=== PATIENT | male | born 1980 | race African-American/Black ===

== ENCOUNTER 2017-02-23 16:04 | Emergency (ER) | payer MEDICAID ==
[~2017-02-23] VITALS: Ht 162.6 cm; Wt 59.0 kg
[~2017-02-23 16:04] MED LIST: [UNRECOGNIZED DRUG - REMARK] PO; [UNRECOGNIZED DRUG - REMARK] PO
--- NOTE | 2017-02-23 17:19 | NUR ---
JOSELIN arrived to speak with pt.
--- NOTE | 2017-02-23 17:35 | NUR ---
Pt resting gurney with no acute distress noted, xray results pending.
--- NOTE | 2017-02-23 19:06 | NUR ---
Patient discharged to home in stable conditon. Written and verbal after care instructions given. Patient verbalizes understanding of instructions. Stressed follow up or return to ER for worsening s/s.
== END 2017-02-23 19:08 | disposition home or self-care (01) ==
LOC: ER 16:04
DX: S13.4XXA Sprain of ligaments of cervical spine, initial encounter (principal); S49.92XA Unspecified injury of left shoulder and upper arm, initial encounter; Z59.0 Homelessness; V79.9XXA Bus occupant (driver) (passenger) injured in unspecified traffic accident, initial encounter; Y93.89 Activity, other specified; Y92.413 State road as the place of occurrence of the external cause; Y99.9 Unspecified external cause status
CPT/HCPCS: 72040; 73030; 99284; A4663

== ENCOUNTER 2017-02-25 06:41 | Emergency (ER) | payer MEDICAID ==
[~2017-02-25] VITALS: Ht 162.6 cm; Wt 59.0 kg
--- NOTE | 2017-02-25 07:10 | NUR ---
Pt.was seen by ,pt.refuse from any treatment & lab draw or x-ray. Was d/c by .
[2017-02-25] MEDS ORDERED: IBUPROFEN 600 MG TABLET PO ONE (07:30)
[2017-02-25 07:35] VITALS: BP 128/64
[2017-02-25] MEDS ORDERED: IBUPROFEN 600 MG TABLET ONE (07:41)
== END 2017-02-25 07:37 | disposition home or self-care (01) ==
LOC: ER 06:41
DX: F32.9 Major depressive disorder, single episode, unspecified (principal); F41.9 Anxiety disorder, unspecified; Z59.0 Homelessness
CPT/HCPCS: 99284; A4663

== ENCOUNTER 2017-03-27 18:54 | Emergency (ER) | payer MEDICAID ==
[~2017-03-27] VITALS: Ht 162.6 cm; Wt 59.0 kg
--- NOTE | 2017-03-27 19:20 | NUR ---
Patient walked into ER c/o SI. Patient states he wants to cut his arm/wrist. Patient's clothing and property removed from the room, all dangerous items removed from the room, all cabinets are locked in the room, Security at bedside for 1:1 observation, To room 3A. [facility]ITAL[facility] performed MSE.
[2017-03-27 19:54] LABS: EOSINOPHILS # (AUTO) 0.1 K/uL (0.0-0.7); EOSINOPHILS % (AUTO) 2.8 % (0.0-7.0); HEMATOCRIT 40.8 % (40-50); HEMOGLOBIN 13.1 G/DL (14.0-18.0); LYMPHOCYTES # (AUTO) 1.7 K/UL (0.8-4.8); LYMPHOCYTES % (AUTO) 43.2 % (20.5-51.5); MEAN CORPUSCULAR HEMOGLOBIN 28.3 UUG (27.0-31.0); MEAN CORPUSCULAR HGB CONC 32 g/dL (32.0-37.0); MEAN CORPUSCULAR VOLUME 87.8 FL (82.0-92.0); MONOCYTES # (AUTO) 0.5 K/UL (0.1-1.30); MONOCYTES % (AUTO) 14.8 % (0.0-11.0); NEUTROPHILS # (AUTO) 1.4 K/UL (1.8-8.9); NEUTROPHILS % (AUTO) 38.2 % (38.5-71.5); PLATELET COUNT (AUTO) 301 K/UL (150-450); RED BLOOD CELL COUNT(AUTO) 4.65 MIL/UL (4.7-6.1); WHITE BLOOD COUNT (AUTO) 3.7 K/UL (4.0-11.2)
[2017-03-27 19:55] LABS: CARBON DIOXIDE 26 mmol/L (21-32); CHLORIDE 103 mmol/L (98-107); CREATININE 1.2 mg/dL (0.6-1.3); GLUCOSE 109 mg/dL (74-106); POTASSIUM 3.5 mmol/L (3.5-5.1); UREA NITROGEN, BLOOD 15 mg/dL (7-18)
[2017-03-27 20:04] LABS: ETHANOL < 3 MG/DL (0-0)
[2017-03-27 20:09] LABS: ALANINE AMINOTRANSFERASE 20 U/L (16-63); ALKALINE PHOSPHATASE 75 U/L (50-136); ASPARTATE AMINOTRANSFERASE 18 U/L (15-37); BILIRUBIN,DIRECT 0.1 mg/dL (0.0-0.2); BILIRUBIN,TOTAL 0.4 mg/dL (0.2-1.0); TOTAL PROTEIN, SERUM 8.1 g/dL (6.4-8.2)
[2017-03-27 20:11] LABS: ACETAMINOPHEN < 2.0 ug/mL (10-30)
--- NOTE | 2017-03-27 20:12 | NUR ---
Call placed to [facility] for PET evaluation. ETA 30 min
[2017-03-27] MEDS ORDERED: PHENYTOIN SODIUM IV 1,000 MG in IV NORMAL SALINE 100 ML IV ONE (20:30)
[2017-03-27] MEDS ORDERED: PHENYTOIN SODIUM 250 MG/5 ML VIAL IV ONE (20:49)
--- NOTE | 2017-03-27 20:53 | NUR ---
Patient refuses medication ordered by VITALIY. Patient states he has a fear of needles and yelled at staff "I'm not going to have a seizure!" VITALIY notified.
--- NOTE | 2017-03-27 21:30 | NUR ---
Patient laying in bed with eyes closed and blanket covering head intermittently. PET evaluation was completed. Patient is refusing to speak to staff and pretending to be sleeping despite observing patient moving his head and eyes around when he thinks people are not looking. ARETHAD notified.
--- NOTE | 2017-03-27 22:10 | NUR ---
Patient given written and verbal discharge instructions. Patient verbalizes understanding of instructions. Patient is ambulatory with steady gait. Refuses offer of halfway placement. Patient given list of available shelters in surrounding area.
== END 2017-03-27 22:11 | disposition home or self-care (01) ==
LOC: ER 18:54
DX: R45.851 Suicidal ideations (principal); D72.819 Decreased white blood cell count, unspecified; D64.9 Anemia, unspecified; F25.9 Schizoaffective disorder, unspecified
CPT/HCPCS: 36415; 85025; A4663; G0480; G0480-TC; J1165; J3490

== ENCOUNTER 2019-10-08 18:39 | Emergency (ER) | payer MEDICAID ==
[~2019-10-08] VITALS: Ht 162.6 cm; Wt 65.3 kg
--- NOTE | 2019-10-08 19:10 | NUR ---
Assumed care of patient. No acute distress noted. Direct observation ongoing. VSS
[2019-10-08 19:15] LABS: BASOPHILS # (AUTO) 0.1 K/uL (0.0-8.0); BASOPHILS % (AUTO) 1.1 % (0.0-2.0); EOSINOPHILS # (AUTO) 0.1 K/uL (0.0-0.7); EOSINOPHILS % (AUTO) 1.2 % (0.0-7.0); HEMATOCRIT 33.9 % (36.7-47.1); HEMOGLOBIN 11.5 g/dL (12.5-16.3); LYMPHOCYTES # (AUTO) 1.9 K/uL (20.0-40.0); LYMPHOCYTES % (AUTO) 30.2 % (20.5-51.5); MEAN CORPUSCULAR HEMOGLOBIN 28.8 uug (23.8-33.4); MEAN CORPUSCULAR HGB CONC 34 g/dL (32.5-36.3); MEAN CORPUSCULAR VOLUME 84.5 fL (73.0-96.2); MONOCYTES # (AUTO) 0.9 K/uL (2.0-10.0); MONOCYTES % (AUTO) 13.4 % (0.0-11.0); NEUTROPHILS # (AUTO) 3.5 K/uL (1.8-8.9); NEUTROPHILS % (AUTO) 54.1 % (38.5-71.5); PLATELET COUNT (AUTO) 293 K/uL (152-348); RED BLOOD CELL COUNT(AUTO) 4.01 MIL/uL (4.06-5.63); WHITE BLOOD COUNT (AUTO) 6.4 K/uL (3.6-10.2)
--- NOTE | 2019-10-08 19:19 | NUR ---
Spoke to Yazmin BERRY from Crisis team. She will come evaluate the patient once she is finished with her current case at [facility].
[2019-10-08 19:21] LABS: CARBON DIOXIDE 28 mmol/L (21-32); CHLORIDE 98 mmol/L (98-107); CREATININE 1.5 mg/dL (0.6-1.3); GLUCOSE 98 mg/dL (74-106); POTASSIUM 3.6 mmol/L (3.5-5.1); UREA NITROGEN, BLOOD 23 mg/dL (7-18)
[2019-10-08 19:30] LABS: ETHANOL < 3 MG/DL (0-0)
[2019-10-08 19:35] LABS: THYROID STIMULATING HORMONE 2.499 mIU/mL (0.358-3.740)
[2019-10-08 19:36] LABS: ACETAMINOPHEN < 2.0 ug/mL (10-30); ALANINE AMINOTRANSFERASE 16 U/L (16-63); ALKALINE PHOSPHATASE 71 U/L (50-136); ASPARTATE AMINOTRANSFERASE 32 U/L (15-37); BILIRUBIN,DIRECT 0.2 mg/dL (0.0-0.2); BILIRUBIN,TOTAL 0.5 mg/dL (0.2-1.0); CREATINE KINASE, TOTAL 1188 U/L (39-308); TOTAL PROTEIN, SERUM 9.2 g/dL (6.4-8.2)
--- NOTE | 2019-10-08 20:00 | NUR ---
[employer] at bedside interviewing patient.
--- NOTE | 2019-10-08 20:13 | NUR ---
Patient provided with sample cup for UDS.
[2019-10-08 20:42] LABS: *AMPHETAMINE, URINE POSITIVE (NEGATIVE); *BARBITURATE, URINE NEGATIVE (NEGATIVE); *CANNABINOID, URINE POSITIVE (NEGATIVE); *COCCAINE, URINE NEGATIVE (NEGATIVE); *OPIATE, URINE NEGATIVE (NEGATIVE); *PHENCYCLIDINE SCREEN,URINE POSITIVE (NEGATIVE)
--- NOTE | 2019-10-08 21:12 | NUR ---
Pinky at bedside for patient evaluation.
--- NOTE | 2019-10-08 21:30 | NUR ---
Per Yazmin RN, patient is free to leave if he decides to.
--- NOTE | 2019-10-08 23:11 | NUR ---
Patient provided with Verbal ACI. When speaking with ER MD, patient states he was simpy seeking food and longterm. He refused to complete the homeless d/c form, refused resources.
[2019-10-08 23:14] VITALS: BP 123/78
--- NOTE | 2019-10-08 23:14 | NUR ---
Patient denies SI/SA upon my evaluation.
== END 2019-10-08 23:15 | disposition home or self-care (01) ==
LOC: ER 18:43
DX: R45.851 Suicidal ideations (principal); Z76.5 Malingerer [conscious simulation]; F15.10 Other stimulant abuse, uncomplicated; F16.10 Hallucinogen abuse, uncomplicated; Z59.0 Homelessness; Z91.5 Personal history of self-harm; E87.1 Hypo-osmolality and hyponatremia; M62.82 Rhabdomyolysis; N28.9 Disorder of kidney and ureter, unspecified; F17.210 Nicotine dependence, cigarettes, uncomplicated
CPT/HCPCS: 36415; 80048; 80076; 80307 ×2; 80329; 82550; 84443; 85025; 93005; 99285; G0480; A4663

== ENCOUNTER 2020-04-14 20:01 | Emergency (ER) | payer MEDICAID ==
[~2020-04-14] VITALS: Ht 170.2 cm; Wt 67.1 kg
[~2020-04-14 20:01] MED LIST changes: +DEPAKOTE; +QUET25TA3; -[UNRECOGNIZED DRUG - REMARK] PO; -[UNRECOGNIZED DRUG - REMARK] PO
--- NOTE | 2020-04-14 20:20 | NUR ---
Patient BIB [id number], patient is homeless and verbalizes SI with a plan. Patient is A/Ox4. Speech is clear, speaks in complete sentences. Respiratory even and unlabored, no cough no sob. No cardiovascular distress noted, denies any cp, palpitations. Denies any n/v/d, or any gu distress. Endorses abusing marijuana and meth. Patient states he wants to overdose on his psych meds and methamphetamines. Safety precautions implemented. Personal items removed and placed in nursing station. Room reassessed and items removed.
--- NOTE | 2020-04-14 20:30 | NUR ---
[employer] placed patient on a 5150 for DTS.
[2020-04-14 21:15] LABS: BASOPHILS # (AUTO) 0.1 K/uL (0.0-8.0); BASOPHILS % (AUTO) 0.9 % (0.0-2.0); EOSINOPHILS % (AUTO) 0.7 % (0.0-7.0); HEMATOCRIT 36.3 % (36.7-47.1); HEMOGLOBIN 12.4 g/dL (12.5-16.3); LYMPHOCYTES # (AUTO) 1.7 K/uL (20.0-40.0); LYMPHOCYTES % (AUTO) 25.7 % (20.5-51.5); MEAN CORPUSCULAR HEMOGLOBIN 29.2 uug (23.8-33.4); MEAN CORPUSCULAR HGB CONC 34 g/dL (32.5-36.3); MEAN CORPUSCULAR VOLUME 85.4 fL (73.0-96.2); MONOCYTES # (AUTO) 0.7 K/uL (2.0-10.0); MONOCYTES % (AUTO) 10.1 % (0.0-11.0); NEUTROPHILS # (AUTO) 4.1 K/uL (1.8-8.9); NEUTROPHILS % (AUTO) 62.6 % (38.5-71.5); PLATELET COUNT (AUTO) 318 K/uL (152-348); RED BLOOD CELL COUNT(AUTO) 4.24 MIL/uL (4.06-5.63); WHITE BLOOD COUNT (AUTO) 6.6 K/uL (3.6-10.2)
[2020-04-14 21:18] LABS: CARBON DIOXIDE 26 mmol/L (21-32); CHLORIDE 103 mmol/L (98-107); CREATININE 1.4 mg/dL (0.6-1.3); GLUCOSE 87 mg/dL (74-106); POTASSIUM 3.9 mmol/L (3.5-5.1); UREA NITROGEN, BLOOD 19 mg/dL (7-18)
[2020-04-14 21:20] LABS: ETHANOL < 3 MG/DL (0-0)
[2020-04-14 21:22] LABS: ACETAMINOPHEN < 2.0 ug/mL (10-30)
[2020-04-14 22:42] LABS: *BILIRUBIN,URIN NEGATIVE (NEGATIVE); *CLARITY,URINE CLEAR (CLEAR); *COLOR,URINE YELLOW (YELLOW); *KETONES,URINE TRACE (NEGATIVE); *UROBILINOGEN,URINE 0.2 E.U./dl (NORMAL); LEUKOCYTE ESTERASE ,URINE NEGATIVE (NEGATIVE); NITRITE, URINE NEGATIVE (NEGATIVE); PH,URINE 5.5 (5.0-8.0); UGLUCOSE NEGATIVE (NEGATIVE)
[2020-04-14 22:43] LABS: *BLOOD, URINE TRACE LYSED (NEGATIVE)
[2020-04-14 23:47] LABS: *AMPHETAMINE, URINE POSITIVE (NEGATIVE); *CANNABINOID, URINE POSITIVE (NEGATIVE); *COCCAINE, URINE NEGATIVE (NEGATIVE); *OPIATE, URINE NEGATIVE (NEGATIVE); *PHENCYCLIDINE SCREEN,URINE NEGATIVE (NEGATIVE)
[2020-04-15 00:02] LABS: BACTERIA,URINE NONE SEEN /HPF (NONE SEEN); RBC,URINE 0-3 /HPF (0-3); SQUAMOUS EPITHELIAL CELL,UR NONE SEEN /HPF (NONE SEEN); URINE AMORPHOUS URATE FEW /HPF; WBC,URINE 0-3 /HPF (0-3)
--- NOTE | 2020-04-15 01:00 | NUR ---
MIRIAM Nguyen here to evaluate patient.
--- NOTE | 2020-04-15 01:30 | NUR ---
Per Mk Arroyo LCSW. He left a cover sheet along with information to [facility] for mental health. Clinicals will be faxed over and reviewed to find placement for patient.
--- NOTE | 2020-04-15 02:30 | NUR ---
Patient in bed, watching tv, nad, vss. Will continue to observe. No sitter available.
--- NOTE | 2020-04-15 05:30 | NUR ---
[facility] from [facility] called regarding psych admissions. Clinicals faxed over to [facility]. FAX# [phone]
--- NOTE | 2020-04-15 06:30 | NUR ---
Meal requested for patient.
--- NOTE | 2020-04-15 07:03 | NUR ---
Hand off report given to JAMAL Lyman. Patient pending placement for psychiatric admission.
--- NOTE | 2020-04-15 07:16 | NUR ---
Received pt. AAOx4 vitals stable afebrile.97.8 hr of 74, sbp of 120/67. RR 18.
--- NOTE | 2020-04-15 08:00 | NUR ---
summary report faxed to [place] with receipt confirmation.
--- NOTE | 2020-04-15 10:04 | NUR ---
A follow up call from [facility] Crisis team aevaluator.
--- NOTE | 2020-04-15 10:46 | NUR ---
A call from Vickie Brady with transfer information as informed pt will be going to [facility]. instructed to call with admitting physician Keke Baker.
--- NOTE | 2020-04-15 10:56 | NUR ---
A call to [facility] to speak [facility] [employer]. Ruben at this time I was asked to call back in 30 minutes.
--- NOTE | 2020-04-15 11:10 | NUR ---
Ambulance services called to arrange s transportation spoke with Jesus Alberto of [facility] received with T#[id number].
--- NOTE | 2020-04-15 11:29 | NUR ---
At this time spoke with Antwon guillen rn at [facility] for report and as informed He'll call back "I don't have any information that I will admit a patient give me your number and name I'll call you back". Awaiting call back.
--- NOTE | 2020-04-15 11:50 | NUR ---
Telephone report given to Mercy Kapoor and as informed patient will be going to room 128-A.
--- NOTE | 2020-04-15 13:24 | NUR ---
[facility] in to pick pt. up to transfer to [facility] report given to Malgorzata Mccabe vitals of : 118/64 hr of 74 and 99% on ra 98.0 oral temp. patient left room AAOx4. able to transfer self from bed to [facility] belongings taken with transfer staff .
[2020-04-15 13:28] VITALS: BP 124/64
== END 2020-04-15 13:31 ==
LOC: ER 20:02
DX: F20.9 Schizophrenia, unspecified (principal); R45.851 Suicidal ideations; Z59.0 Homelessness; F31.9 Bipolar disorder, unspecified; Z91.5 Personal history of self-harm; F15.10 Other stimulant abuse, uncomplicated; F10.10 Alcohol abuse, uncomplicated; Z20.828 Contact with and (suspected) exposure to other viral communicable diseases
CPT/HCPCS: 36415; 85025; A4663; G0480